=== PATIENT | female | born 1955 | race African-American/Black ===

== ENCOUNTER 2020-11-10 15:32 | Inpatient (IN) | payer MEDICARE, MEDICAID ==
[~2020-11-10] VITALS: Ht 167.6 cm; Wt 95.3 kg
[2020-11-10] MEDS ORDERED: KETOROLAC 60MG/2ML VIAL IM ONE (16:30)
[2020-11-10] MEDS ORDERED: HYDROCODONE/ACETAMINOPHEN 10/325MG TABLET PO ONE (16:30)
[2020-11-10 17:31] LABS: BASOPHILS % 0.9 % (0.0-2.0); HEMATOCRIT. 43.4 % (36.0-48.0); HEMOGLOBIN. 14.6 g/dL (12.0-16.0); LYMPHOCYTES % 42.8 % (20.0-50.0); MEAN CORPUSCULAR HEMOGLOBIN 29.9 pg (28.0-32.0); MEAN CORPUSCULAR VOLUME 89.1 fL (81.0-99.0); MEAN PLATELET VOLUME 6.6 fl (7.4-10.4); MONOCYTES % 8.2 % (2.0-8.0); NEUTROPHILS % 45.1 % (40.0-76.0); PLATELET 397 x1000/uL (130-400); RED BLOOD CELL COUNT 4.87 mill/uL (4.2-5.4); RED CELL DISTRIBUTION WIDTH 13.3 % (11.6-14.6)
[2020-11-10 17:36] LABS: CHLORIDE 101 mEq/L (98-107)
[2020-11-10 17:39] LABS: PROTHROMBIN TIME 10.8 sec (9.6-11.0)
[2020-11-10] MEDS ORDERED: MORPHINE SULFATE 4 MG/ML CPJ (NOT FOR IM USE) IV ONE ×2 (18:00→20:00)
[2020-11-11 01:22] VITALS: BP 137/76
[2020-11-11] MEDS ORDERED: HYDROCODONE/ACETAMINOPHEN 5/325MG TABLET PO PRN (06:15)
[2020-11-11] MEDS ORDERED: NALOXONE HCL 0.4MG/ML VIAL IV PRN (06:30)
[2020-11-11] MEDS: MORPHINE SULFATE 2 MG/ML CPJ (NOT FOR IM USE) IV PRN ×2 (06:56→12:57)
[2020-11-11 08:00] VITALS: BP 133/82
[2020-11-11 12:00] VITALS: BP 151/84
[2020-11-11] MEDS ORDERED: HYDROCODONE/ACETAMINOPHEN 10/325MG TABLET PO PRN (13:45)
[2020-11-11] MEDS ORDERED: ONDANSETRON HCL 4MG/2ML INJ IV PRN (13:45)
[2020-11-11] MEDS ORDERED: HYDROMORPHONE HCL/PF 2MG/ML CPJ IV NR (14:45)
[2020-11-11 16:00] VITALS: BP 150/83
[2020-11-11 17:16] LABS: BASOPHILS % 0.5 % (0.0-2.0); EOSINOPHILS % 1.9 % (0.0-5.0); HEMOGLOBIN. 14.1 g/dL (12.0-16.0); LYMPHOCYTES % 41.7 % (20.0-50.0); MEAN CORPUSCULAR HEMOGLOBIN 30.5 pg (28.0-32.0); MEAN CORPUSCULAR VOLUME 88.6 fL (81.0-99.0); MEAN PLATELET VOLUME 6.9 fl (7.4-10.4); MONOCYTES % 7.8 % (2.0-8.0); NEUTROPHILS % 48.1 % (40.0-76.0); PLATELET 374 x1000/uL (130-400); RED BLOOD CELL COUNT 4.63 mill/uL (4.2-5.4); RED CELL DISTRIBUTION WIDTH 13.1 % (11.6-14.6)
[2020-11-11 17:29] LABS: CHLORIDE 101 mEq/L (98-107)
[2020-11-11 17:35] LABS: C REACTIVE PROTEIN QUANT 8.3 mg/L (0.0-3.0)
[2020-11-11] MEDS ORDERED: LORAZEPAM 2MG/ML CPJ IV NR (18:00)
[2020-11-11 18:55] LABS: CLARITY URINE CLEAR (CLEAR); COLOR URINE YELLOW (YELLOW); KETONES URINE NEGATIVE (NEGATIVE); LEUKOCYTE ESTERASE URINE NEGATIVE (NEGATIVE); NITRITE URINE NEGATIVE (NEGATIVE); OCCULT BLOOD URINE NEGATIVE (NEGATIVE); PH URINE 6.5 (4.5-8.0); PROTEIN URINE 1+ (NEGATIVE); SPECIFIC GRAVITY URINE 1.015 (1.005-1.030)
[2020-11-11 20:00] VITALS: BP 148/85
[2020-11-11] MEDS: OXYCODONE HCL/ACETAMINOPHEN 5/325MG TABLET PO PRN (20:50)
[2020-11-12] VITALS: BP 158/97
[2020-11-12] MEDS: OXYCODONE HCL/ACETAMINOPHEN 5/325MG TABLET PO PRN ×4 (03:18→22:17)
[2020-11-12 04:00] VITALS: BP 131/95
[2020-11-12] MEDS: HYDROMORPHONE HCL/PF 2MG/ML CPJ IV PRN ×4 (07:33→23:03)
[2020-11-12] MEDS ORDERED: LORAZEPAM 2MG/ML CPJ IV SCH (13:00)
[2020-11-12] MEDS ORDERED: ATEN-42 MT (16:30)
[2020-11-12] MEDS ORDERED: AMLO5TAB88 PO (16:37)
[2020-11-12] MEDS ORDERED: HYDR25TA MT (16:43)
[2020-11-12] MEDS ORDERED: ASCO-339 MT (16:43)
[2020-11-12 20:00] VITALS: BP 149/89
[2020-11-13] VITALS: BP 177/88
[2020-11-13] MEDS: OXYCODONE HCL/ACETAMINOPHEN 5/325MG TABLET PO PRN ×3 (00:40→17:29)
[2020-11-13 04:00] VITALS: BP 158/75
[2020-11-13] MEDS: HYDROMORPHONE HCL/PF 2MG/ML CPJ IV PRN ×3 (06:52→21:47)
[2020-11-13 08:00] VITALS: BP 142/77
[2020-11-13 12:00] VITALS: BP 135/88
[2020-11-13] MEDS: AMLODIPINE 5MG TABLET PO SCH (12:22)
[2020-11-13] MEDS: DEXT 5%/LACTATED RINGERS 1,000 ML IV SCH ×2 (12:22→21:27)
[2020-11-13] MEDS: ATENOLOL 25MG TABLET PO SCH (12:23)
[2020-11-13 16:00] VITALS: BP 130/84
[2020-11-13] MEDS: SODIUM CHLORIDE 45ML SPRAY NS SCH ×2 (17:28→21:27)
[2020-11-13 17:33] LABS: BG BASE EXCESS 5.5 mmol/L (-2.0-2.0); BG CARBOXYHEMOGLOBIN 0.8 % (0.5-1.5); BG DEOXYHEMOGLOBIN 5.3 % (0.0-5.0); BG FRACTION INSPIRED OXYGEN 21; BG HCO3 ACT 29.8 mmol/L (22.0-26.0); BG METHEMOGLOBIN 0.2 % (0.0-1.5); BG OXYGEN SATURATION 94.6 % (92.0-98.5); BG OXYHEMOGLOBIN 93.7 % (94.0-97.0); BG PCO2 42.4 mmHg (35.0-45.0); BG PH 7.465 (7.350-7.450); BG SAMPLE SITE RIGHT RADIAL; BG TOTAL HEMOGLOBIN 13.8 g/dL (12.0-18.0); BG VENT MODE ROOM AIR
[2020-11-13 20:00] VITALS: BP 136/83
[2020-11-14] VITALS: BP 125/71
[2020-11-14] MEDS: OXYCODONE HCL/ACETAMINOPHEN 5/325MG TABLET PO PRN ×3 (00:53→18:53)
[2020-11-14] MEDS: SODIUM CHLORIDE 45ML SPRAY NS SCH ×6 (02:00→22:16)
[2020-11-14 04:00] VITALS: BP 135/70
[2020-11-14] MEDS: HYDROMORPHONE HCL/PF 2MG/ML CPJ IV PRN (06:04)
[2020-11-14 08:00] VITALS: BP_SYST 149; BP_SYST 151; BP_DIAS 75; BP_DIAS 80
[2020-11-14] MEDS: DEXT 5%/LACTATED RINGERS 1,000 ML IV SCH ×2 (08:00→17:11)
[2020-11-14] MEDS: AMLODIPINE 5MG TABLET PO SCH ×2 (09:12→17:11)
[2020-11-14] MEDS: ATENOLOL 25MG TABLET PO SCH (09:12)
[2020-11-14] MEDS ORDERED: HYDROMORPHONE HCL/PF 2MG/ML CPJ IV PRN (11:15)
[2020-11-14 12:00] VITALS: BP 151/75
[2020-11-14 16:00] VITALS: BP 141/68
[2020-11-14 20:00] VITALS: BP 139/74
[2020-11-15] VITALS: BP 132/75
[2020-11-15] MEDS: SODIUM CHLORIDE 45ML SPRAY NS SCH ×6 (02:00→21:23)
[2020-11-15 04:00] VITALS: BP 162/86
[2020-11-15] MEDS: OXYCODONE HCL/ACETAMINOPHEN 5/325MG TABLET PO PRN ×3 (05:09→21:23)
[2020-11-15] MEDS: DEXT 5%/LACTATED RINGERS 1,000 ML IV SCH ×2 (05:10→13:06)
[2020-11-15 07:07] LABS: BASOPHILS % 0.9 % (0.0-2.0); EOSINOPHILS % 3.2 % (0.0-5.0); HEMATOCRIT. 39.4 % (36.0-48.0); HEMOGLOBIN. 13.3 g/dL (12.0-16.0); LYMPHOCYTES % 37.6 % (20.0-50.0); MEAN CORPUSCULAR HEMOGLOBIN 30.3 pg (28.0-32.0); MEAN CORPUSCULAR VOLUME 89.8 fL (81.0-99.0); MONOCYTES % 8.8 % (2.0-8.0); NEUTROPHILS % 49.5 % (40.0-76.0); PLATELET 354 x1000/uL (130-400); RED BLOOD CELL COUNT 4.38 mill/uL (4.2-5.4); RED CELL DISTRIBUTION WIDTH 13.2 % (11.6-14.6)
[2020-11-15 07:37] LABS: CHLORIDE 105 mEq/L (98-107)
[2020-11-15 08:00] VITALS: BP 156/90
[2020-11-15] MEDS: AMLODIPINE 5MG TABLET PO SCH ×2 (09:21→18:50)
[2020-11-15] MEDS: ATENOLOL 25MG TABLET PO SCH (09:22)
[2020-11-15] MEDS ORDERED: POTASSIUM CHLORIDE 20MEQ/PACKET PO SCH (09:30)
[2020-11-15] MEDS ORDERED: GENTAMICIN/NS IRRIGATION 500 ML IR ONE (10:24)
[2020-11-15 12:00] VITALS: BP 158/86
[2020-11-15 16:00] VITALS: BP 149/80
[2020-11-15 20:00] VITALS: BP 142/87
[2020-11-16] VITALS: BP 142/75
[2020-11-16] MEDS: SODIUM CHLORIDE 45ML SPRAY NS SCH ×6 (02:00→22:00)
[2020-11-16] MEDS: OXYCODONE HCL/ACETAMINOPHEN 5/325MG TABLET PO PRN ×5 (03:31→22:48)
[2020-11-16 04:00] VITALS: BP 162/81
[2020-11-16 08:00] VITALS: BP 135/74
[2020-11-16 08:16] LABS: CHLORIDE 104 mEq/L (98-107)
[2020-11-16 08:18] LABS: BASOPHILS % 0.9 % (0.0-2.0); EOSINOPHILS % 1.5 % (0.0-5.0); HEMATOCRIT. 40.3 % (36.0-48.0); HEMOGLOBIN. 13.7 g/dL (12.0-16.0); LYMPHOCYTES % 35.8 % (20.0-50.0); MEAN CORPUSCULAR HEMOGLOBIN 29.9 pg (28.0-32.0); MEAN CORPUSCULAR VOLUME 88.3 fL (81.0-99.0); MEAN PLATELET VOLUME 7.2 fl (7.4-10.4); MONOCYTES % 8.1 % (2.0-8.0); NEUTROPHILS % 53.7 % (40.0-76.0); PLATELET 360 x1000/uL (130-400); RED BLOOD CELL COUNT 4.56 mill/uL (4.2-5.4)
[2020-11-16] MEDS: ATENOLOL 25MG TABLET PO SCH (09:21)
[2020-11-16] MEDS: AMLODIPINE 5MG TABLET PO SCH ×2 (09:21→17:24)
[2020-11-16] MEDS: DEXT 5%/LACTATED RINGERS 1,000 ML IV SCH ×2 (09:26)
[2020-11-16 12:00] VITALS: BP 141/78
[2020-11-16 16:00] VITALS: BP 136/71
[2020-11-16 20:00] VITALS: BP 150/76
[2020-11-17 00:22] VITALS: BP 112/56
[2020-11-17] MEDS: SODIUM CHLORIDE 45ML SPRAY NS SCH ×6 (02:00→21:01)
[2020-11-17] MEDS: OXYCODONE HCL/ACETAMINOPHEN 5/325MG TABLET PO PRN ×3 (03:43→16:01)
[2020-11-17 04:29] VITALS: BP 120/61
[2020-11-17 06:18] LABS: BASOPHILS % 0.7 % (0.0-2.0); EOSINOPHILS % 1.8 % (0.0-5.0); HEMATOCRIT. 39.7 % (36.0-48.0); HEMOGLOBIN. 13.5 g/dL (12.0-16.0); LYMPHOCYTES % 36.5 % (20.0-50.0); MEAN CORPUSCULAR HEMOGLOBIN 29.9 pg (28.0-32.0); MEAN PLATELET VOLUME 7.3 fl (7.4-10.4); MONOCYTES % 8.9 % (2.0-8.0); NEUTROPHILS % 52.1 % (40.0-76.0); PLATELET 363 x1000/uL (130-400); RED BLOOD CELL COUNT 4.51 mill/uL (4.2-5.4)
[2020-11-17 06:36] LABS: CHLORIDE 104 mEq/L (98-107)
[2020-11-17 08:00] VITALS: BP 139/85
[2020-11-17] MEDS: ATENOLOL 25MG TABLET PO SCH (09:09)
[2020-11-17] MEDS: AMLODIPINE 5MG TABLET PO SCH ×2 (09:09→16:02)
[2020-11-17 12:00] VITALS: BP 136/73
[2020-11-17 16:00] VITALS: BP 133/76
[2020-11-17] MEDS: DEXT 5%/LACTATED RINGERS 1,000 ML IV SCH (16:00)
[2020-11-17] MEDS ORDERED: ENOXAPARIN 40MG/0.4ML SYR SUBCUT SCH (17:00)
[2020-11-17] MEDS: LACTULOSE 20G/30ML UDC PO SCH ×2 (17:00→20:32)
[2020-11-17] MEDS: ENOXAPARIN 30MG/0.3ML SYR SUBCUT SCH (17:30)
[2020-11-17] MEDS: DOCUSATE SODIUM 100MG CAPSULE PO SCH (17:30)
[2020-11-17 20:00] VITALS: BP 112/97
[2020-11-18] VITALS: BP 113/62
[2020-11-18] MEDS: LACTULOSE 20G/30ML UDC PO SCH (00:36)
[2020-11-18] MEDS: OXYCODONE HCL/ACETAMINOPHEN 5/325MG TABLET PO PRN ×3 (00:39→16:08)
[2020-11-18] MEDS: SODIUM CHLORIDE 45ML SPRAY NS SCH ×2 (01:37→05:25)
[2020-11-18] MEDS: DEXT 5%/LACTATED RINGERS 1,000 ML IV SCH (01:37)
[2020-11-18 04:00] VITALS: BP 112/66
[2020-11-18] MEDS: ENOXAPARIN 30MG/0.3ML SYR SUBCUT SCH ×2 (05:25→17:45)
[2020-11-18] MEDS: IPRATROPIUM/ALBUTEROL 0.5-3(2.5)MG/3ML NEB HHN SCH ×2 (07:52→22:10)
[2020-11-18 08:00] VITALS: BP 146/99
[2020-11-18] MEDS ORDERED: POLYETHYLENE GLYCOL 3350 (17GM) 1 DOSE PACK PO SCH (09:00)
[2020-11-18] MEDS ORDERED: ATENOLOL 50 MG TABLET PO SCH (09:00)
[2020-11-18] MEDS ORDERED: METHOCARBAMOL 500MG TABLET PO PRN (09:30)
[2020-11-18] MEDS ORDERED: NALOXONE HCL 0.4MG/ML VIAL IV PRN (09:30)
[2020-11-18] MEDS: DOCUSATE SODIUM 100MG CAPSULE PO SCH ×2 (09:41→17:43)
[2020-11-18] MEDS: AMLODIPINE 5MG TABLET PO SCH ×2 (09:42→17:44)
[2020-11-18 12:00] VITALS: BP 136/76
[2020-11-18 16:00] VITALS: BP 124/74
[2020-11-18] MEDS: GABAPENTIN 300MG CAPSULE PO SCH ×2 (16:07→21:33)
[2020-11-18 20:00] VITALS: BP 114/63
== END 2020-11-18 22:00 | DRG 551 ==
LOC: ER 15:32 → ENRESERV 23:19 → 6EST 11-11 00:54
PROVIDERS: ADMIT Internal Medicine; ATTEND Internal Medicine
DX: M48.061 Spinal stenosis, lumbar region without neurogenic claudication (principal); S34.109A Unspecified injury to unspecified level of lumbar spinal cord, initial encounter; G82.20 Paraplegia, unspecified; J98.11 Atelectasis; M32.9 Systemic lupus erythematosus, unspecified; M47.26 Other spondylosis with radiculopathy, lumbar region; M51.16 Intervertebral disc disorders with radiculopathy, lumbar region; M48.07 Spinal stenosis, lumbosacral region; M48.04 Spinal stenosis, thoracic region; M19.90 Unspecified osteoarthritis, unspecified site; G89.29 Other chronic pain; F12.90 Cannabis use, unspecified, uncomplicated; J31.0 Chronic rhinitis; Z20.822 Contact with and (suspected) exposure to COVID-19; I10 Essential (primary) hypertension; J45.909 Unspecified asthma, uncomplicated; M06.9 Rheumatoid arthritis, unspecified; M48.02 Spinal stenosis, cervical region; E66.01 Morbid (severe) obesity due to excess calories; M51.24 Other intervertebral disc displacement, thoracic region; E07.9 Disorder of thyroid, unspecified; G47.30 Sleep apnea, unspecified; X58.XXXA Exposure to other specified factors, initial encounter; Z68.33 Body mass index [BMI] 33.0-33.9, adult; Z82.49 Family history of ischemic heart disease and other diseases of the circulatory system; Y93.89 Activity, other specified; Y92.89 Other specified places as the place of occurrence of the external cause; Y99.8 Other external cause status; R53.81 Other malaise; R26.9 Unspecified abnormalities of gait and mobility; K76.0 Fatty (change of) liver, not elsewhere classified; Z71.3 Dietary counseling and surveillance
CPT/HCPCS: 36415; 36600; 71045; 72141; 72146; 72148; 74176; 78306; 80048; 80053; 81003; 82375; 82378; 82805; 84145; 85025; 85651; 86140; 86300; 86301; 86304; 86850; 86900; 87426; 93005; 93306; 94640; 97110; 97162; 97166; 97530; 99285; A9503; J1170; J1650; J1885; J2060; J2270; J7121

== ENCOUNTER 2020-11-18 22:06 | Inpatient (IN) | payer MEDICARE, MEDICAID ==
[~2020-11-18] VITALS: Ht 167.6 cm; Wt 95.3 kg
[~2020-11-18 22:06] MED LIST: AMLO5TAB88 PO; ASCO-339 MT; ATEN-42 MT; HYDR25TA MT
[2020-11-18 22:20] VITALS: BP 136/77
[2020-11-18 22:30] VITALS: BP 136/77
[2020-11-18] MEDS ORDERED: OXYCODONE HCL/ACETAMINOPHEN 5/325MG TABLET PO PRN (22:45)
[2020-11-18] MEDS ORDERED: NALOXONE HCL 0.4 MG/ML 1ML VIAL IV PRN (22:45)
[2020-11-18] MEDS ORDERED: ONDANSETRON HCL 4MG/2ML INJ IV PRN (22:45)
[2020-11-18] MEDS ORDERED: NALOXONE HCL 0.4MG/ML VIAL IV PRN (23:00)
[2020-11-18] MEDS: OXYCODONE HCL/ACETAMINOPHEN 5/325MG TABLET PO PRN (23:02)
[2020-11-19] MEDS ORDERED: IPRATROPIUM/ALBUTEROL 0.5-3(2.5)MG/3ML NEB HHN SCH
[2020-11-19] MEDS: GABAPENTIN 300MG CAPSULE PO SCH ×3 (05:50→21:00)
[2020-11-19] MEDS: OXYCODONE HCL/ACETAMINOPHEN 5/325MG TABLET PO PRN ×2 (05:51→18:58)
[2020-11-19] MEDS: ENOXAPARIN 30MG/0.3ML SYR SUBCUT SCH ×2 (05:51→17:42)
[2020-11-19 07:13] LABS: BASOPHILS % 0.9 % (0.0-2.0); EOSINOPHILS % 2.4 % (0.0-5.0); HEMATOCRIT. 42.7 % (36.0-48.0); HEMOGLOBIN. 14.1 g/dL (12.0-16.0); LYMPHOCYTES % 44.4 % (20.0-50.0); MEAN CORPUSCULAR HEMOGLOBIN 29.4 pg (28.0-32.0); MEAN CORPUSCULAR VOLUME 89.2 fL (81.0-99.0); MONOCYTES % 8.8 % (2.0-8.0); NEUTROPHILS % 43.5 % (40.0-76.0); PLATELET 399 x1000/uL (130-400); RED BLOOD CELL COUNT 4.78 mill/uL (4.2-5.4); RED CELL DISTRIBUTION WIDTH 12.9 % (11.6-14.6)
[2020-11-19 07:20] LABS: CHLORIDE 105 mEq/L (98-107)
[2020-11-19 07:55] VITALS: BP 125/79
[2020-11-19] MEDS: SODIUM CHLORIDE 45ML SPRAY NS SCH ×4 (09:00→20:48)
[2020-11-19] MEDS: DOCUSATE SODIUM 100MG CAPSULE PO SCH ×2 (09:32→17:41)
[2020-11-19] MEDS: ATENOLOL 50 MG TABLET PO SCH (09:33)
[2020-11-19] MEDS: AMLODIPINE 5MG TABLET PO SCH ×2 (09:33→20:47)
[2020-11-19] MEDS: POLYETHYLENE GLYCOL 3350 (17GM) 1 DOSE PACK PO SCH (09:38)
[2020-11-19] MEDS: METHOCARBAMOL 500MG TABLET PO PRN ×2 (10:26→23:37)
[2020-11-19] MEDS ORDERED: IPRATROPIUM/ALBUTEROL 0.5-3(2.5)MG/3ML NEB HHN PRN (11:30)
[2020-11-19] MEDS: LACTULOSE 20G/30ML UDC PO SCH ×3 (13:25→20:45)
[2020-11-19 20:00] VITALS: BP 133/67
[2020-11-19] MEDS: LIDOCAINE 5% PATCH TOP SCH (20:49)
[2020-11-20] MEDS: METHYL SALICYLATE/MENTHOL CREAM 85GM TOP PRN (00:08)
[2020-11-20] MEDS: OXYCODONE HCL/ACETAMINOPHEN 5/325MG TABLET PO PRN (03:31)
[2020-11-20] MEDS: GABAPENTIN 300MG CAPSULE PO SCH ×3 (05:43→20:56)
[2020-11-20] MEDS: ENOXAPARIN 30MG/0.3ML SYR SUBCUT SCH ×2 (05:43→18:02)
[2020-11-20 06:44] LABS: BASOPHILS % 0.9 % (0.0-2.0); HEMATOCRIT. 41.4 % (36.0-48.0); HEMOGLOBIN. 14.2 g/dL (12.0-16.0); LYMPHOCYTES % 42.9 % (20.0-50.0); MEAN CORPUSCULAR HEMOGLOBIN 30.3 pg (28.0-32.0); MEAN CORPUSCULAR VOLUME 88.3 fL (81.0-99.0); MONOCYTES % 7.3 % (2.0-8.0); NEUTROPHILS % 45.9 % (40.0-76.0); PLATELET 377 x1000/uL (130-400); RED BLOOD CELL COUNT 4.69 mill/uL (4.2-5.4); RED CELL DISTRIBUTION WIDTH 13.2 % (11.6-14.6)
[2020-11-20 06:48] LABS: CHLORIDE 103 mEq/L (98-107)
[2020-11-20 06:59] LABS: TOTAL IRON BINDING CAPACITY 269 ug/dL (250-450)
[2020-11-20 07:09] LABS: FERRITIN 134 ng/mL (10-291)
[2020-11-20 07:22] LABS: VITAMIN B12 SERUM 1897 pg/mL (211-911)
[2020-11-20 07:33] LABS: FOLIC ACID (FOLATE) SERUM > 20.00 ng/mL (>5.38)
[2020-11-20 08:00] VITALS: BP 125/74
[2020-11-20] MEDS: SODIUM CHLORIDE 45ML SPRAY NS SCH ×4 (09:00→20:58)
[2020-11-20] MEDS: DOCUSATE SODIUM 100MG CAPSULE PO SCH ×2 (09:19→17:30)
[2020-11-20] MEDS: METHOCARBAMOL 500MG TABLET PO PRN ×2 (09:19→20:21)
[2020-11-20] MEDS: ATENOLOL 50 MG TABLET PO SCH (09:20)
[2020-11-20] MEDS: AMLODIPINE 5MG TABLET PO SCH ×2 (09:20→20:57)
[2020-11-20] MEDS: POLYETHYLENE GLYCOL 3350 (17GM) 1 DOSE PACK PO SCH (09:20)
[2020-11-20] MEDS: LIDOCAINE 5% PATCH TOP SCH ×2 (09:20→18:01)
[2020-11-20] MEDS: OXYCODONE HCL 5MG TABLET PO PRN ×2 (13:03→17:31)
[2020-11-20] MEDS ORDERED: NA PHOS,M-B/NA PHOS,DI-BA ENEMA 118ML PR PRN (15:00)
[2020-11-20] MEDS: LACTULOSE 20G/30ML UDC PO SCH ×2 (18:01→21:06)
[2020-11-20 20:00] VITALS: BP 131/74
[2020-11-20] MEDS: HYDROCODONE/ACETAMINOPHEN 10/325MG TABLET PO PRN (20:54)
[2020-11-21] MEDS: GABAPENTIN 300MG CAPSULE PO SCH ×3 (05:09→21:38)
[2020-11-21] MEDS: ENOXAPARIN 30MG/0.3ML SYR SUBCUT SCH ×2 (05:09→17:50)
[2020-11-21] MEDS: HYDROCODONE/ACETAMINOPHEN 10/325MG TABLET PO PRN (05:15)
[2020-11-21 08:32] VITALS: BP 140/74
[2020-11-21] MEDS: DOCUSATE SODIUM 100MG CAPSULE PO SCH (08:58)
[2020-11-21] MEDS: ATENOLOL 50 MG TABLET PO SCH (08:59)
[2020-11-21] MEDS: OXYCODONE HCL 5MG TABLET PO PRN ×4 (08:59→20:45)
[2020-11-21] MEDS: POLYETHYLENE GLYCOL 3350 (17GM) 1 DOSE PACK PO SCH (09:00)
[2020-11-21] MEDS: LACTULOSE 20G/30ML UDC PO SCH (09:00)
[2020-11-21] MEDS: LIDOCAINE 5% PATCH TOP SCH (09:01)
[2020-11-21] MEDS: SODIUM CHLORIDE 45ML SPRAY NS SCH ×4 (10:15→20:45)
[2020-11-21] MEDS: AMLODIPINE 5MG TABLET PO SCH ×2 (10:16→20:44)
[2020-11-21 19:48] LABS: CLARITY URINE CLEAR (CLEAR); COLOR URINE DARK YELLOW (YELLOW); KETONES URINE NEGATIVE (NEGATIVE); LEUKOCYTE ESTERASE URINE NEGATIVE (NEGATIVE); NITRITE URINE NEGATIVE (NEGATIVE); OCCULT BLOOD URINE TRACE (NEGATIVE); PROTEIN URINE 2+ (NEGATIVE)
[2020-11-21 20:00] VITALS: BP 132/88
[2020-11-22] MEDS: OXYCODONE HCL 5MG TABLET PO PRN ×4 (02:44→18:23)
[2020-11-22] MEDS: METHOCARBAMOL 500MG TABLET PO PRN (03:45)
[2020-11-22] MEDS: GABAPENTIN 300MG CAPSULE PO SCH ×3 (05:36→21:29)
[2020-11-22] MEDS: ENOXAPARIN 30MG/0.3ML SYR SUBCUT SCH ×2 (05:37→13:31)
[2020-11-22] MEDS: HYDROCODONE/ACETAMINOPHEN 10/325MG TABLET PO PRN ×2 (07:01→22:29)
[2020-11-22 08:21] VITALS: BP 133/75
[2020-11-22] MEDS: AMLODIPINE 5MG TABLET PO SCH ×2 (10:05→21:30)
[2020-11-22] MEDS: ATENOLOL 50 MG TABLET PO SCH (10:07)
[2020-11-22] MEDS: LIDOCAINE 5% PATCH TOP SCH (10:07)
[2020-11-22] MEDS: SODIUM CHLORIDE 45ML SPRAY NS SCH ×4 (10:08→21:33)
[2020-11-22 20:00] VITALS: BP 126/74
[2020-11-23] MEDS: OXYCODONE HCL 5MG TABLET PO PRN ×3 (00:08→22:07)
[2020-11-23] MEDS: ENOXAPARIN 30MG/0.3ML SYR SUBCUT SCH ×2 (06:18→18:54)
[2020-11-23] MEDS: GABAPENTIN 300MG CAPSULE PO SCH ×3 (06:18→22:06)
[2020-11-23 08:17] VITALS: BP 117/60
[2020-11-23] MEDS: SODIUM CHLORIDE 45ML SPRAY NS SCH ×4 (08:49→21:00)
[2020-11-23] MEDS: LIDOCAINE 5% PATCH TOP SCH (08:50)
[2020-11-23] MEDS: ATENOLOL 50 MG TABLET PO SCH (08:51)
[2020-11-23] MEDS: AMLODIPINE 5MG TABLET PO SCH ×2 (08:52→21:00)
[2020-11-23] MEDS ORDERED: POLYETHYLENE GLYCOL 3350 (17GM) 1 DOSE PACK PO SCH (09:00)
[2020-11-23] MEDS: HYDROCODONE/ACETAMINOPHEN 10/325MG TABLET PO PRN (16:33)
[2020-11-23] MEDS: METHOCARBAMOL 500MG TABLET PO PRN (19:17)
[2020-11-23 20:00] VITALS: BP 129/74
[2020-11-24] MEDS: METHYL SALICYLATE/MENTHOL CREAM 85GM TOP PRN ×2 (01:19→12:27)
[2020-11-24] MEDS: OXYCODONE HCL 5MG TABLET PO PRN ×4 (01:58→21:09)
[2020-11-24] MEDS: GABAPENTIN 300MG CAPSULE PO SCH ×3 (06:43→21:53)
[2020-11-24] MEDS: ENOXAPARIN 30MG/0.3ML SYR SUBCUT SCH ×2 (06:44→18:01)
[2020-11-24 08:00] VITALS: BP 137/82
[2020-11-24] MEDS: ATENOLOL 50 MG TABLET PO SCH (09:26)
[2020-11-24] MEDS: SODIUM CHLORIDE 45ML SPRAY NS SCH ×4 (09:26→20:20)
[2020-11-24] MEDS: LIDOCAINE 5% PATCH TOP SCH (09:27)
[2020-11-24] MEDS: AMLODIPINE 5MG TABLET PO SCH ×2 (10:03→20:20)
[2020-11-24] MEDS ORDERED: LACTULOSE 20G/30ML UDC PO SCH (17:30)
[2020-11-24 20:00] VITALS: BP 146/79
[2020-11-24] MEDS: MORPHINE SULFATE 15MG TABLET SR PO SCH (20:21)
[2020-11-25] MEDS: OXYCODONE HCL 5MG TABLET PO PRN ×4 (02:03→15:35)
[2020-11-25] MEDS: METHOCARBAMOL 500MG TABLET PO PRN (04:31)
[2020-11-25] MEDS: METHYL SALICYLATE/MENTHOL CREAM 85GM TOP PRN ×2 (04:32→13:24)
[2020-11-25] MEDS: GABAPENTIN 300MG CAPSULE PO SCH ×3 (06:03→21:02)
[2020-11-25] MEDS: ENOXAPARIN 30MG/0.3ML SYR SUBCUT SCH ×2 (06:03→17:01)
[2020-11-25 07:54] VITALS: BP 142/89
[2020-11-25] MEDS: AMLODIPINE 5MG TABLET PO SCH ×2 (08:48→20:38)
[2020-11-25] MEDS: ATENOLOL 50 MG TABLET PO SCH (08:48)
[2020-11-25] MEDS: MORPHINE SULFATE 15MG TABLET SR PO SCH ×2 (08:48→20:38)
[2020-11-25] MEDS: LIDOCAINE 5% PATCH TOP SCH (08:52)
[2020-11-25] MEDS: SODIUM CHLORIDE 45ML SPRAY NS SCH ×5 (08:54→20:37)
[2020-11-25] MEDS: HYDROCODONE/ACETAMINOPHEN 10/325MG TABLET PO PRN ×2 (17:13→17:17)
[2020-11-25 17:16] VITALS: BP 110/65
[2020-11-25 20:00] VITALS: BP 116/66
[2020-11-26] MEDS: OXYCODONE HCL 5MG TABLET PO PRN ×3 (00:20→21:57)
[2020-11-26] MEDS: METHOCARBAMOL 500MG TABLET PO PRN (03:11)
[2020-11-26] MEDS: ENOXAPARIN 30MG/0.3ML SYR SUBCUT SCH ×2 (05:50→17:14)
[2020-11-26] MEDS: GABAPENTIN 300MG CAPSULE PO SCH ×3 (05:50→21:59)
[2020-11-26 07:06] LABS: CHLORIDE 104 mEq/L (98-107)
[2020-11-26 07:20] LABS: BASOPHILS % 0.5 % (0.0-2.0); EOSINOPHILS % 2.9 % (0.0-5.0); HEMATOCRIT. 37.8 % (36.0-48.0); HEMOGLOBIN. 12.5 g/dL (12.0-16.0); LYMPHOCYTES % 49.7 % (20.0-50.0); MEAN CORPUSCULAR HEMOGLOBIN 29.3 pg (28.0-32.0); MEAN CORPUSCULAR VOLUME 88.8 fL (81.0-99.0); MONOCYTES % 8.4 % (2.0-8.0); NEUTROPHILS % 38.5 % (40.0-76.0); PLATELET 341 x1000/uL (130-400); RED BLOOD CELL COUNT 4.26 mill/uL (4.2-5.4); RED CELL DISTRIBUTION WIDTH 13.1 % (11.6-14.6)
[2020-11-26 08:20] VITALS: BP 113/74
[2020-11-26] MEDS: ATENOLOL 50 MG TABLET PO SCH (09:00)
[2020-11-26] MEDS: SODIUM CHLORIDE 45ML SPRAY NS SCH ×4 (09:00→20:00)
[2020-11-26] MEDS: LIDOCAINE 5% PATCH TOP SCH (10:36)
[2020-11-26] MEDS: MORPHINE SULFATE 15MG TABLET SR PO SCH ×2 (10:37→20:00)
[2020-11-26] MEDS: AMLODIPINE 5MG TABLET PO SCH ×2 (10:41→20:01)
[2020-11-26 15:09] LABS: 25-HYDROXY VITAMIN D3 18 ng/mL (.)
[2020-11-26 20:00] VITALS: BP 133/77
[2020-11-27] MEDS: OXYCODONE HCL 5MG TABLET PO PRN ×3 (02:52→17:07)
[2020-11-27] MEDS: METHOCARBAMOL 500MG TABLET PO PRN (04:19)
[2020-11-27] MEDS: METHYL SALICYLATE/MENTHOL CREAM 85GM TOP PRN (04:19)
[2020-11-27] MEDS: GABAPENTIN 300MG CAPSULE PO SCH ×3 (05:38→20:56)
[2020-11-27] MEDS: ENOXAPARIN 30MG/0.3ML SYR SUBCUT SCH ×2 (05:38→17:05)
[2020-11-27 08:00] VITALS: BP 135/77
[2020-11-27] MEDS: SODIUM CHLORIDE 45ML SPRAY NS SCH ×2 (09:00→13:00)
[2020-11-27] MEDS: ATENOLOL 50 MG TABLET PO SCH (09:34)
[2020-11-27] MEDS: MORPHINE SULFATE 15MG TABLET SR PO SCH ×2 (09:34→21:00)
[2020-11-27] MEDS: AMLODIPINE 5MG TABLET PO SCH ×2 (09:34→20:55)
[2020-11-27] MEDS: LIDOCAINE 5% PATCH TOP SCH (09:35)
[2020-11-27] MEDS ORDERED: ERGOCALCIFEROL 50000UNITS CAPSULE PO SCH (10:30)
[2020-11-27] MEDS: DOCUSATE SODIUM 100MG CAPSULE PO SCH (17:00)
[2020-11-27] MEDS ORDERED: SODIUM CHLORIDE 45ML SPRAY NS PRN (17:00)
[2020-11-27 20:00] VITALS: BP 118/71
[2020-11-28] MEDS: OXYCODONE HCL 5MG TABLET PO PRN ×3 (02:14→23:01)
[2020-11-28] MEDS: GABAPENTIN 300MG CAPSULE PO SCH ×3 (05:16→20:23)
[2020-11-28] MEDS: ENOXAPARIN 30MG/0.3ML SYR SUBCUT SCH ×2 (05:17→17:15)
[2020-11-28] MEDS: HYDROCODONE/ACETAMINOPHEN 10/325MG TABLET PO PRN (05:17)
[2020-11-28 07:47] VITALS: BP 117/65
[2020-11-28] MEDS: POLYETHYLENE GLYCOL 3350 (17GM) 1 DOSE PACK PO SCH (09:40)
[2020-11-28] MEDS: MORPHINE SULFATE 15MG TABLET SR PO SCH ×2 (09:41→20:23)
[2020-11-28] MEDS: LIDOCAINE 5% PATCH TOP SCH (09:41)
[2020-11-28] MEDS: DOCUSATE SODIUM 100MG CAPSULE PO SCH ×2 (09:42→16:42)
[2020-11-28] MEDS: ATENOLOL 50 MG TABLET PO SCH (09:42)
[2020-11-28] MEDS: AMLODIPINE 5MG TABLET PO SCH ×2 (10:06→20:24)
[2020-11-28 20:00] VITALS: BP 126/64
[2020-11-29] MEDS: HYDROCODONE/ACETAMINOPHEN 10/325MG TABLET PO PRN (03:20)
[2020-11-29] MEDS: METHOCARBAMOL 500MG TABLET PO PRN (03:23)
[2020-11-29] MEDS: GABAPENTIN 300MG CAPSULE PO SCH ×3 (05:37→21:01)
[2020-11-29] MEDS: OXYCODONE HCL 5MG TABLET PO PRN ×3 (05:40→19:06)
[2020-11-29] MEDS: ENOXAPARIN 30MG/0.3ML SYR SUBCUT SCH ×2 (06:26→17:22)
[2020-11-29 08:06] VITALS: BP 141/72
[2020-11-29] MEDS: ATENOLOL 50 MG TABLET PO SCH (08:06)
[2020-11-29] MEDS: AMLODIPINE 5MG TABLET PO SCH ×2 (08:07→20:57)
[2020-11-29] MEDS: MORPHINE SULFATE 15MG TABLET SR PO SCH ×2 (08:07→20:57)
[2020-11-29] MEDS: DOCUSATE SODIUM 100MG CAPSULE PO SCH ×2 (08:14→17:21)
[2020-11-29] MEDS: LIDOCAINE 5% PATCH TOP SCH (08:14)
[2020-11-29] MEDS: POLYETHYLENE GLYCOL 3350 (17GM) 1 DOSE PACK PO SCH (09:00)
[2020-11-29 20:00] VITALS: BP 113/64
[2020-11-30] MEDS: METHOCARBAMOL 500MG TABLET PO PRN ×2 (01:41→13:21)
[2020-11-30] MEDS: HYDROCODONE/ACETAMINOPHEN 10/325MG TABLET PO PRN (03:18)
[2020-11-30] MEDS: OXYCODONE HCL 5MG TABLET PO PRN ×3 (04:57→22:38)
[2020-11-30] MEDS: GABAPENTIN 300MG CAPSULE PO SCH ×3 (05:01→21:01)
[2020-11-30] MEDS: ENOXAPARIN 30MG/0.3ML SYR SUBCUT SCH ×2 (05:03→18:00)
[2020-11-30 08:01] VITALS: BP 133/52
[2020-11-30] MEDS: DOCUSATE SODIUM 100MG CAPSULE PO SCH ×2 (08:05→16:37)
[2020-11-30] MEDS: MORPHINE SULFATE 15MG TABLET SR PO SCH ×2 (08:05→21:02)
[2020-11-30] MEDS: ATENOLOL 50 MG TABLET PO SCH (08:06)
[2020-11-30] MEDS: LIDOCAINE 5% PATCH TOP SCH (08:06)
[2020-11-30] MEDS: AMLODIPINE 5MG TABLET PO SCH ×2 (08:06→21:03)
[2020-11-30] MEDS: POLYETHYLENE GLYCOL 3350 (17GM) 1 DOSE PACK PO SCH (08:15)
[2020-11-30] MEDS: METHYL SALICYLATE/MENTHOL CREAM 85GM TOP PRN (13:22)
[2020-11-30] MEDS: SODIUM CHLORIDE 45ML SPRAY NS PRN (18:32)
[2020-11-30 20:00] VITALS: BP 142/68
[2020-12-01] MEDS: HYDROCODONE/ACETAMINOPHEN 10/325MG TABLET PO PRN ×3 (00:55→16:54)
[2020-12-01] MEDS: OXYCODONE HCL 5MG TABLET PO PRN ×2 (03:59→12:22)
[2020-12-01] MEDS: GABAPENTIN 300MG CAPSULE PO SCH ×3 (06:06→20:59)
[2020-12-01] MEDS: ENOXAPARIN 30MG/0.3ML SYR SUBCUT SCH ×2 (06:08→17:02)
[2020-12-01 07:52] VITALS: BP 117/58
[2020-12-01] MEDS: DOCUSATE SODIUM 100MG CAPSULE PO SCH ×2 (08:26→16:54)
[2020-12-01] MEDS: MORPHINE SULFATE 15MG TABLET SR PO SCH ×2 (08:26→20:59)
[2020-12-01] MEDS: AMLODIPINE 5MG TABLET PO SCH ×2 (08:27→20:57)
[2020-12-01] MEDS: POLYETHYLENE GLYCOL 3350 (17GM) 1 DOSE PACK PO SCH (08:27)
[2020-12-01] MEDS: ATENOLOL 50 MG TABLET PO SCH (08:27)
[2020-12-01] MEDS: LIDOCAINE 5% PATCH TOP SCH (08:28)
[2020-12-01] MEDS ORDERED: NALOXONE HCL 0.4MG/ML VIAL IV PRN (12:30)
[2020-12-01 20:00] VITALS: BP 132/64
[2020-12-02] MEDS: HYDROCODONE/ACETAMINOPHEN 10/325MG TABLET PO PRN (02:06)
[2020-12-02] MEDS: SODIUM CHLORIDE 45ML SPRAY NS PRN (03:27)
[2020-12-02] MEDS: GABAPENTIN 300MG CAPSULE PO SCH ×2 (06:30→13:48)
[2020-12-02] MEDS: ENOXAPARIN 30MG/0.3ML SYR SUBCUT SCH (06:30)
[2020-12-02 08:00] VITALS: BP 111/64
[2020-12-02] MEDS ORDERED: POLY17PO3 PO (08:27)
[2020-12-02] MEDS ORDERED: LIDO700A30 TOP (08:27)
[2020-12-02] MEDS ORDERED: CHOL-9 PO (08:27)
[2020-12-02] MEDS ORDERED: ATEN50TA PO (08:27)
[2020-12-02] MEDS ORDERED: AMLO5TAB88 PO (08:27)
[2020-12-02] MEDS ORDERED: GABA-532 PO (08:27)
[2020-12-02] MEDS ORDERED: MSCON15 PO (08:27)
[2020-12-02] MEDS: POLYETHYLENE GLYCOL 3350 (17GM) 1 DOSE PACK PO SCH (08:48)
[2020-12-02] MEDS: DOCUSATE SODIUM 100MG CAPSULE PO SCH ×2 (08:49→17:00)
[2020-12-02] MEDS: AMLODIPINE 5MG TABLET PO SCH (08:50)
[2020-12-02] MEDS: MORPHINE SULFATE 15MG TABLET SR PO SCH (08:50)
[2020-12-02] MEDS: ATENOLOL 50 MG TABLET PO SCH (08:50)
[2020-12-02] MEDS: LIDOCAINE 5% PATCH TOP SCH (08:51)
[2020-12-02] MEDS ORDERED: NALO4SPR BOTHNSTRLS (09:48)
[2020-12-02] MEDS: OXYCODONE HCL 5MG TABLET PO PRN ×2 (10:57→16:11)
[2020-12-02 14:27] VITALS: BP 120/82
[2020-12-02 16:11] VITALS: BP 158/59
== END 2020-12-02 17:40 | disposition home health service (06) | DRG 552 ==
LOC: UNDODISIN 11-24 16:13
PROVIDERS: ADMIT Physical Medicine & Rehabilitation Spinal Cord Injury Medicine; ATTEND Internal Medicine
DX: M48.061 Spinal stenosis, lumbar region without neurogenic claudication (principal); G82.20 Paraplegia, unspecified; M47.816 Spondylosis without myelopathy or radiculopathy, lumbar region; E66.9 Obesity, unspecified; G89.4 Chronic pain syndrome; I10 Essential (primary) hypertension; K76.0 Fatty (change of) liver, not elsewhere classified; M32.9 Systemic lupus erythematosus, unspecified; M48.02 Spinal stenosis, cervical region; M48.07 Spinal stenosis, lumbosacral region; E55.9 Vitamin D deficiency, unspecified; M51.24 Other intervertebral disc displacement, thoracic region; M51.36 Other intervertebral disc degeneration, lumbar region; R26.9 Unspecified abnormalities of gait and mobility; R53.81 Other malaise; Z82.49 Family history of ischemic heart disease and other diseases of the circulatory system; Z68.33 Body mass index [BMI] 33.0-33.9, adult
CPT/HCPCS: 36415; 76770; 80048; 80053; 81003; 82306; 82607; 82728; 82746; 83540; 83550; 84134; 84443; 85025; 93970; 97110; 97116; 97162; 97166; 97530; 97535; J1650

== ENCOUNTER 2022-10-07 16:39 | Emergency (ER) | payer MEDICARE, MEDICAID ==
[~2022-10-07] VITALS: Ht 170.2 cm; Wt 106.0 kg
[~2022-10-07 16:39] MED LIST changes: -ATEN-42 MT; +ATEN50TA PO; +CHOL-9 PO; +GABA-532 PO; -HYDR25TA MT; +LIDO700A30 TOP; +MSCON15 PO; +NALO4SPR BOTHNSTRLS; +POLY17PO3 PO
[2022-10-07 17:06] VITALS: BP 143/98; O2SAT 96
[2022-10-07 19:00] LABS: CLARITY URINE CLEAR (CLEAR); COLOR URINE YELLOW (YELLOW); KETONES URINE 1+ (NEGATIVE); LEUKOCYTE ESTERASE URINE NEGATIVE (NEGATIVE); NITRITE URINE NEGATIVE (NEGATIVE); OCCULT BLOOD URINE NEGATIVE (NEGATIVE); PH URINE 5.5 (4.5-8.0); PROTEIN URINE 1+ (NEGATIVE); SPECIFIC GRAVITY URINE 1.029 (1.005-1.030); UROBILINOGEN URINE 0.2 E.U./dL (0.2-1.0)
[2022-10-07] MEDS ORDERED: CIPR-263 MT (20:03)
[2022-10-07] MEDS ORDERED: FLUC150T46 MT (20:03)
[2022-10-07 20:14] VITALS: PULSE 61; RESP 20; TEMP 98
== END 2022-10-07 20:15 | disposition home or self-care (01) ==
LOC: ER 16:53
DX: B37.9 Candidiasis, unspecified (principal); N39.0 Urinary tract infection, site not specified; I10 Essential (primary) hypertension; Z79.899 Other long term (current) drug therapy
CPT/HCPCS: 81003; 99283

== ENCOUNTER 2023-06-23 07:23 | Emergency (ER) | payer BC, MEDICAID ==
[~2023-06-23] VITALS: Ht 172.7 cm; Wt 100.0 kg
[~2023-06-23 07:23] MED LIST changes: +CIPR-263 MT; +FLUC150T46 MT; +INSU100I13 SQ; +INSU100I28 SQ
[2023-06-23 07:52] VITALS: O2SAT 97
[2023-06-23] MEDS ORDERED: IPRATROPIUM/ALBUTEROL 0.5-3(2.5)MG/3ML NEB HHN ONE (09:30)
[2023-06-23] MEDS ORDERED: PREDNISONE 20MG TABLET PO ONE (09:30)
[2023-06-23 10:27] LABS: CLARITY URINE CLEAR (CLEAR); COLOR URINE YELLOW (YELLOW); GLUCOSE URINE NEGATIVE (NEGATIVE); KETONES URINE NEGATIVE (NEGATIVE); LEUKOCYTE ESTERASE URINE TRACE (NEGATIVE); NITRITE URINE NEGATIVE (NEGATIVE); OCCULT BLOOD URINE TRACE (NEGATIVE); PH URINE 5.5 (4.5-8.0); PROTEIN URINE 2+ (NEGATIVE); SPECIFIC GRAVITY URINE 1.011 (1.005-1.030); UROBILINOGEN URINE 0.2 E.U./dL (0.2-1.0)
[2023-06-23 10:33] LABS: BASOPHILS % 0.8 % (0.0-2.0); EOSINOPHILS % 1.1 % (0.0-5.0); HEMATOCRIT. 39.9 % (36.0-48.0); HEMOGLOBIN. 13.6 g/dL (12.0-16.0); MEAN CORPUSCULAR HEMOGLOBIN 30.4 pg (28.0-32.0); MEAN CORPUSCULAR HGB CONC 34.1 g/dL (31.0-37.0); MEAN CORPUSCULAR VOLUME 89.1 fL (81.0-99.0); NEUTROPHILS % 68.1 % (40.0-76.0); PLATELET 323 x1000/uL (130-400); RED BLOOD CELL COUNT 4.48 mill/uL (4.2-5.4); RED CELL DISTRIBUTION WIDTH 12.7 % (11.6-14.6); WHITE BLOOD COUNT 7.1 x1000/uL (4.5-11.0)
[2023-06-23 10:42] LABS: SQUAMOUS EPITHELIAL CELL URINE 2+ /lpf (RARE/1+)
[2023-06-23 10:43] LABS: CALCIUM OXALATE CRYSTALS URINE 1+ /lpf; RBC URINE 0-2 /hpf (0-2)
[2023-06-23 10:44] LABS: INR 0.9; PROTHROMBIN TIME 10.6 sec (9.6-11.0)
[2023-06-23 10:45] LABS: BACTERIA URINE 2+
[2023-06-23 10:58] LABS: ALANINE AMINOTRANSFERASE 14 IU/L (10-49); ALBUMIN 3.6 g/dL (3.2-4.8); ASPARTATE AMINOTRANSFERASE 14 IU/L (<34); BILIRUBIN TOTAL 0.4 mg/dL (0.1-1.0); CALCIUM 9.1 mg/dL (8.7-10.4); CARBON DIOXIDE 31 mEq/L (21-32); CHLORIDE 95 mEq/L (98-107); CREATININE 0.6 mg/dL (0.6-1.0); GLUCOSE 341 mg/dL (70-105); POTASSIUM 3.5 mEq/L (3.5-5.1); PROTEIN TOTAL 7.1 g/dL (6.0-8.3); SODIUM 131 mEq/L (136-145); UREA NITROGEN BLOOD 10 mg/dL (9-23)
[2023-06-23] MEDS ORDERED: PREDNISONE 20MG TABLET PO NR (11:00)
[2023-06-23 11:11] LABS: TROPONIN I HIGH SENSITIVITY < 4 ng/L (3.0-34)
[2023-06-23] MEDS ORDERED: P50 MT (11:24)
[2023-06-23] MEDS ORDERED: ALBU6.7H15 INH (11:25)
[2023-06-23] MEDS ORDERED: SODIUM CHLORIDE 0.9% 1,000 ML IV ONE (11:30)
[2023-06-23 11:43] VITALS: BP 153/74; PULSE 89; RESP 19; TEMP 98.3
== END 2023-06-23 11:45 | disposition home or self-care (01) ==
LOC: ER 07:34
DX: E87.1 Hypo-osmolality and hyponatremia (principal); J44.9 Chronic obstructive pulmonary disease, unspecified; R53.1 Weakness; E11.9 Type 2 diabetes mellitus without complications; I10 Essential (primary) hypertension; Z20.822 Contact with and (suspected) exposure to COVID-19
CPT/HCPCS: 99285; 71045; 87426; 80053; 81003; 82962; 83880; 85025; 85610; 84484; 36415; 93005; J7512; J7030

== ENCOUNTER 2024-03-10 21:50 | Emergency (ER) | payer MEDICAID, MEDICARE ==
[~2024-03-10] VITALS: Ht 162.6 cm; Wt 120.0 kg
[~2024-03-10 21:50] MED LIST changes: +ALBU6.7H15 INH; -CIPR-263 MT; -FLUC150T46 MT; +GABA-1180 PO; -GABA-532 PO; +OXYB5TAB21 MT; +P50 MT
[2024-03-10 22:13] VITALS: O2SAT 97
[2024-03-10] MEDS: LEVETIRACETAM 500MG PREMIX 100 ML IV ONE (23:09)
[2024-03-10 23:10] VITALS: BP 124/82; PULSE 113; RESP 26; TEMP 37.00296; O2SAT 94
[2024-03-10 23:30] LABS: BASOPHILS % 0.4 % (0.0-2.0); EOSINOPHILS % 0.6 % (0.0-5.0); HEMATOCRIT. 37.3 % (36.0-48.0); HEMOGLOBIN. 12.4 g/dL (12.0-16.0); LYMPHOCYTES % 8.8 % (20.0-50.0); MEAN CORPUSCULAR HGB CONC 33.3 g/dL (31.0-37.0); MEAN CORPUSCULAR VOLUME 90.2 fL (81.0-99.0); MEAN PLATELET VOLUME 6.8 fl (7.4-10.4); MONOCYTES % 6.3 % (2.0-8.0); NEUTROPHILS % 83.9 % (40.0-76.0); PLATELET 342 x1000/uL (130-400); RED BLOOD CELL COUNT 4.14 mill/uL (4.2-5.4); RED CELL DISTRIBUTION WIDTH 13.4 % (11.6-14.6); WHITE BLOOD COUNT 10.7 x1000/uL (4.5-11.0)
[2024-03-10 23:33] LABS: CHLORIDE 94 mEq/L (98-107); POTASSIUM 4.1 mEq/L (3.5-5.1); SODIUM 132 mEq/L (136-145)
[2024-03-10 23:34] LABS: CALCIUM 9.5 mg/dL (8.7-10.4); CARBON DIOXIDE 31 mEq/L (21-32)
[2024-03-10 23:39] LABS: CREATININE 0.6 mg/dL (0.6-1.0); GLUCOSE 270 mg/dL (70-105); TROPONIN I HIGH SENSITIVITY 18 ng/L (3.0-34); UREA NITROGEN BLOOD 8 mg/dL (9-23)
[2024-03-10 23:41] LABS: ETHANOL BLOOD < 10 mg/dL (<10)
== END 2024-03-11 01:30 | disposition home or self-care (01) ==
LOC: ER 21:50
DX: G40.909 Epilepsy, unspecified, not intractable, without status epilepticus (principal); I10 Essential (primary) hypertension; Z00.00 Encounter for general adult medical examination without abnormal findings; I11.9 Hypertensive heart disease without heart failure; F03.90 Unspecified dementia, unspecified severity, without behavioral disturbance, psychotic disturbance, mood disturbance, and anxiety; E11.9 Type 2 diabetes mellitus without complications; M19.90 Unspecified osteoarthritis, unspecified site; Z79.899 Other long term (current) drug therapy; Z87.440 Personal history of urinary (tract) infections; Z79.4 Long term (current) use of insulin
CPT/HCPCS: 80048; 80320; 83880; 85025; 84484; 36415; 71045; 70450; 96365; 99285; J1953; G0480

== ENCOUNTER 2024-06-20 07:37 | Emergency (ER) | payer MEDICARE, MEDICAID ==
[~2024-06-20] VITALS: Ht 170.2 cm; Wt 114.0 kg
[2024-06-20 07:39] VITALS: TEMP 37.1; O2SAT 100
[2024-06-20 08:32] LABS: CARBON DIOXIDE 27 mEq/L (21-32); CHLORIDE 94 mEq/L (98-107); POTASSIUM 6.1 mEq/L (3.5-5.1); SODIUM 132 mEq/L (136-145)
[2024-06-20 08:33] LABS: CALCIUM 10.3 mg/dL (8.7-10.4)
[2024-06-20 08:37] LABS: CREATININE 0.8 mg/dL (0.6-1.0)
[2024-06-20 08:38] LABS: TROPONIN I HIGH SENSITIVITY 27 ng/L (3.0-34); UREA NITROGEN BLOOD 8 mg/dL (9-23)
[2024-06-20 08:40] LABS: BETA HYDROXYBUTYRATE 0.3 mMol/L (0.0-0.3)
[2024-06-20 08:48] LABS: GLUCOSE 402 mg/dL (70-105)
[2024-06-20 09:25] LABS: BASOPHILS % 0.6 % (0.0-2.0); EOSINOPHILS % 0.3 % (0.0-5.0); HEMATOCRIT. 41.2 % (36.0-48.0); HEMOGLOBIN. 13.4 g/dL (12.0-16.0); MEAN CORPUSCULAR HEMOGLOBIN 29.3 pg (28.0-32.0); MEAN CORPUSCULAR HGB CONC 32.4 g/dL (31.0-37.0); MEAN CORPUSCULAR VOLUME 90.4 fL (81.0-99.0); MEAN PLATELET VOLUME 6.9 fl (7.4-10.4); MONOCYTES % 2.6 % (2.0-8.0); NEUTROPHILS % 82.5 % (40.0-76.0); PLATELET 307 x1000/uL (130-400); RED BLOOD CELL COUNT 4.56 mill/uL (4.2-5.4); RED CELL DISTRIBUTION WIDTH 13.2 % (11.6-14.6); WHITE BLOOD COUNT 7.4 x1000/uL (4.5-11.0)
[2024-06-20 09:34] LABS: POTASSIUM 3.7 mEq/L (3.5-5.1)
[2024-06-20] MEDS: INSULIN LISPRO 100 UNITS/ML SUBCUT ONE (09:38)
[2024-06-20] MEDS: SODIUM CHLORIDE 0.9% 1,000 ML IV ONE (09:38)
[2024-06-20 10:50] VITALS: BP 141/66; PULSE 78; RESP 12; O2SAT 98
== END 2024-06-20 08:40 | disposition home or self-care (01) ==
LOC: ER 07:37 → CANBEDREQ 11:49
DX: E11.65 Type 2 diabetes mellitus with hyperglycemia (principal); R07.9 Chest pain, unspecified; M19.90 Unspecified osteoarthritis, unspecified site; I10 Essential (primary) hypertension; Z79.4 Long term (current) use of insulin; F03.90 Unspecified dementia, unspecified severity, without behavioral disturbance, psychotic disturbance, mood disturbance, and anxiety; Z79.899 Other long term (current) drug therapy; Z87.440 Personal history of urinary (tract) infections
CPT/HCPCS: 99285; 96360; 71045; 80048; 82010; 82962; 83880; 84132; 85025; 85379; 84484; 36415; 93005; J1815; J7030

== ENCOUNTER 2025-01-13 21:43 | Inpatient (IN) | payer MEDICARE, MEDICAID ==
[~2025-01-13] VITALS: Ht 170.2 cm; Wt 114.8 kg
[2025-01-13 21:51] VITALS: O2SAT 98
[2025-01-13] MEDS: ONDANSETRON HCL 4MG/2ML INJ IV NR (22:49)
[2025-01-13] MEDS: LEVETIRACETAM 1000MG PREMIX 100 ML IV ONE (22:50)
[2025-01-13 23:20] LABS: BASOPHILS % 1.2 % (0.0-2.0); EOSINOPHILS % 0.0 % (0.0-5.0); HEMATOCRIT. 41.8 % (36.0-48.0); HEMOGLOBIN. 13.7 g/dL (12.0-16.0); LYMPHOCYTES % 17.3 % (20.0-50.0); MEAN PLATELET VOLUME 8.0 fl (7.4-10.4); MONOCYTES % 3.2 % (2.0-8.0); NEUTROPHILS % 78.3 % (40.0-76.0); PLATELET 352 x1000/uL (130-400); RED BLOOD CELL COUNT 4.76 mill/uL (4.2-5.4); RED CELL DISTRIBUTION WIDTH 12.8 % (11.6-14.6)
[2025-01-13 23:31] LABS: CREATININE 0.7 mg/dL (0.6-1.0)
[2025-01-13 23:32] LABS: UREA NITROGEN BLOOD 7 mg/dL (9-23)
[2025-01-13 23:33] LABS: ASPARTATE AMINOTRANSFERASE 31 IU/L (<34); BILIRUBIN DIRECT 0.1 mg/dL (<=3.0); PHOSPHORUS 3.6 mg/dL (2.5-4.9); TROPONIN I HIGH SENSITIVITY 21 ng/L (3.0-34)
[2025-01-13 23:34] LABS: BILIRUBIN TOTAL 0.5 mg/dL (0.1-1.0); PROTEIN TOTAL 7.7 g/dL (6.0-8.3)
[2025-01-13 23:38] LABS: INR 1.0
[2025-01-14] MEDS: PANTOPRAZOLE SODIUM 40 MG/VIAL IV ONE (00:01)
[2025-01-14] MEDS: MAGNESIUM/ALUMINUM HYDROXIDE/SIMETHICONE 30ML UDC PO ONE (00:01)
[2025-01-14] MEDS: MORPHINE SULFATE 4 MG/ML INJ (FOR IV/IM USE) IV ONE (00:02)
[2025-01-14] MEDS ORDERED: ALPRAZOLAM 0.5 MG TABLET PO ONE (00:45)
[2025-01-14] MEDS: ALPRAZOLAM 0.25 MG TABLET PO NR (00:49)
[2025-01-14] MEDS: MAGNESIUM 2 G PREMIX 50 ML IV NR (02:25)
[2025-01-14] MEDS: SODIUM CHLORIDE 0.9% 500 ML IV ONE (02:30)
[2025-01-14 05:30] LABS: CLARITY URINE CLEAR (CLEAR); COLOR URINE YELLOW (YELLOW); GLUCOSE URINE 3+ (NEGATIVE); KETONES URINE 3+ (NEGATIVE); LEUKOCYTE ESTERASE URINE NEGATIVE (NEGATIVE); NITRITE URINE NEGATIVE (NEGATIVE); OCCULT BLOOD URINE 1+ (NEGATIVE); PH URINE 6.5 (4.5-8.0); PROTEIN URINE 3+ (NEGATIVE); SPECIFIC GRAVITY URINE 1.036 (1.005-1.030); UROBILINOGEN URINE 0.2 E.U./dL (0.2-1.0)
[2025-01-14 05:48] LABS: *AMPHETAMINES SCREEN URINE NEGATIVE (NEGATIVE); *BARBITURATES SCREEN URINE NEGATIVE (NEGATIVE); *BENZODIAZEPINES SCREEN URINE NEGATIVE (NEGATIVE); *COCAINE SCREEN URINE NEGATIVE (NEGATIVE); CANNABINOID URINE SCREEN PRESUMPTIVE POSITIVE (NEGATIVE); ECSTASY MDMA SCREEN URINE NEGATIVE (NEGATIVE); METHADONE URINE SCREEN NEGATIVE (NEGATIVE); OPIATES URINE SCREEN PRESUMPTIVE POSITIVE (NEGATIVE); PHENCYCLIDINE URINE SCREEN NEGATIVE (NEGATIVE)
[2025-01-14 07:17] LABS: BACTERIA URINE TRACE; RBC URINE 0-2 /hpf (0-2); SQUAMOUS EPITHELIAL CELL URINE 1+ /lpf (RARE/1+); WBC URINE 0-2 /hpf (0-2)
[2025-01-14 07:18] LABS: YEAST URINE 1+
[2025-01-14 08:00] VITALS: BP 126/78; PULSE 83; RESP 18; TEMP 36.7; O2SAT 98
[2025-01-14 09:00] VITALS: BP 126/78; PULSE 83; RESP 18; TEMP 36.696
[2025-01-14] MEDS ORDERED: DOCUSATE SODIUM 100MG CAPSULE PO PRN (10:00)
[2025-01-14] MEDS ORDERED: ACETAMINOPHEN 325MG TABLET PO PRN (10:00)
[2025-01-14] MEDS ORDERED: IPRATROPIUM/ALBUTEROL 0.5-3(2.5)MG/3ML NEB HHN PRN (10:00)
[2025-01-14] MEDS ORDERED: LORAZEPAM 2MG/ML UD SYRINGE IV PRN (10:00)
[2025-01-14] MEDS ORDERED: ONDANSETRON HCL 4MG/2ML INJ IV PRN (10:00)
[2025-01-14] MEDS ORDERED: DEXTROSE 50% WATER 50ML SYRINGE IV PRN (10:00)
[2025-01-14] MEDS: BLOOD SUGAR DIAGNOSTIC STRIP TEST SCH (11:58)
[2025-01-14 12:00] VITALS: BP 150/86; PULSE 89; RESP 18; TEMP 36.3; O2SAT 95
[2025-01-14] MEDS ORDERED: PNEUMOCOCCAL 20-VAL CONJ-DIP CRM 0.5ML IM ONE (12:30)
[2025-01-14] MEDS ORDERED: INFLUENZA VACCINE 05/PF 0.5 ML SYRINGE IM ONE (12:30)
[2025-01-14] MEDS: INSULIN LISPRO 100 UNITS/ML SUBCUT SCH ×3 (12:47→14:24)
[2025-01-14] MEDS: PANTOPRAZOLE SODIUM 40 MG/VIAL IV SCH (12:52)
[2025-01-14] MEDS: SODIUM CHLORIDE 0.9% 1,000 ML IV SCH (12:53)
[2025-01-14] MEDS ORDERED: LEVE750T4 MT (13:47)
[2025-01-14] MEDS: INSULIN GLARGINE 100 UNITS/ML SUBCUT SCH (14:24)
[2025-01-14 16:00] VITALS: BP 136/85; PULSE 85; RESP 18; TEMP 36.8; O2SAT 96
[2025-01-14 20:00] VITALS: BP 106/70; PULSE 89; RESP 20; TEMP 36.2; O2SAT 98
[2025-01-14] MEDS: LEVETIRACETAM 500MG PREMIX 100 ML IV SCH (20:50)
[2025-01-15] VITALS: BP 166/92; PULSE 93; RESP 20; TEMP 35.8; O2SAT 98
[2025-01-15] MEDS: CLONIDINE 0.1MG TABLET PO PRN (00:34)
[2025-01-15 04:00] VITALS: BP 141/70; PULSE 83; RESP 20; TEMP 36.4; O2SAT 97
[2025-01-15 08:00] VITALS: BP 157/91; PULSE 84; RESP 18; TEMP 36.4; O2SAT 96
[2025-01-15] MEDS: ENOXAPARIN 30MG/0.3ML SYR SUBCUT SCH (10:21)
[2025-01-15 11:03] LABS: BASOPHILS % 1.1 % (0.0-2.0); EOSINOPHILS % 0.5 % (0.0-5.0); HEMATOCRIT. 39.9 % (36.0-48.0); HEMOGLOBIN. 13.1 g/dL (12.0-16.0); LYMPHOCYTES % 25.9 % (20.0-50.0); MEAN PLATELET VOLUME 7.7 fl (7.4-10.4); MONOCYTES % 7.2 % (2.0-8.0); NEUTROPHILS % 65.3 % (40.0-76.0); PLATELET 351 x1000/uL (130-400); RED BLOOD CELL COUNT 4.57 mill/uL (4.2-5.4); RED CELL DISTRIBUTION WIDTH 12.9 % (11.6-14.6)
[2025-01-15 11:13] LABS: INR 1.0
[2025-01-15 11:20] LABS: CREATININE 0.6 mg/dL (0.6-1.0)
[2025-01-15 11:21] LABS: UREA NITROGEN BLOOD 7 mg/dL (9-23)
[2025-01-15 11:22] LABS: ASPARTATE AMINOTRANSFERASE 10 IU/L (<34)
[2025-01-15 11:23] LABS: BILIRUBIN DIRECT 0.1 mg/dL (<=3.0); BILIRUBIN TOTAL 0.5 mg/dL (0.1-1.0); PHOSPHORUS 1.7 mg/dL (2.5-4.9); PROTEIN TOTAL 7.1 g/dL (6.0-8.3)
[2025-01-15 12:00] VITALS: BP 132/90; PULSE 89; RESP 19; TEMP 36.5; O2SAT 97
[2025-01-15] MEDS: INSULIN GLARGINE 100 UNITS/ML SUBCUT SCH ×2 (12:20→22:40)
[2025-01-15] MEDS ORDERED: INSULIN REGULAR (HUMULIN R) 1000UNITS/10ML VIAL SUBCUT ONE (14:45)
[2025-01-15 16:00] VITALS: BP 154/93; PULSE 93; PULSE 95; RESP 19; TEMP 36.7; O2SAT 96
[2025-01-15] MEDS: INSULIN LISPRO 100 UNITS/ML SUBCUT SCH (17:15)
[2025-01-15 20:00] VITALS: BP 160/100; PULSE 99; RESP 20; TEMP 35.9; O2SAT 98
[2025-01-16] VITALS: BP 105/85; PULSE 73; RESP 22; TEMP 36.1; O2SAT 97
[2025-01-16 04:00] VITALS: BP 126/81; PULSE 86; RESP 20; TEMP 36.4; O2SAT 99
[2025-01-16] MEDS: INSULIN GLARGINE 100 UNITS/ML SUBCUT SCH (09:27)
[2025-01-16 12:18] VITALS: BP 117/68; PULSE 87; RESP 18; TEMP 36.3; O2SAT 98
[2025-01-16 16:00] VITALS: BP 120/73; PULSE 80; RESP 18; TEMP 36.3; O2SAT 98
[2025-01-16 20:00] VITALS: BP 151/80; PULSE 89; RESP 18; TEMP 36.2; O2SAT 95
[2025-01-16] MEDS: ACETAMINOPHEN 325MG TABLET PO PRN (21:12)
[2025-01-17] VITALS: BP 137/80; PULSE 85; RESP 19; TEMP 36.2; O2SAT 98
[2025-01-17 04:00] VITALS: BP 156/78; PULSE 76; RESP 21; TEMP 24.4; O2SAT 99
[2025-01-17 08:00] VITALS: BP 159/86; PULSE 73; RESP 19; TEMP 36.3; O2SAT 98
[2025-01-17 12:00] VITALS: BP 165/80; PULSE 68; RESP 17; TEMP 36.7; O2SAT 96
[2025-01-17] MEDS ORDERED: LEVE-20 MT (15:24)
[2025-01-17] MEDS ORDERED: HYDR25TA MT (15:29)
[2025-01-17] MEDS ORDERED: INSU100I28 SQ (15:30)
[2025-01-17 16:00] VITALS: BP 155/82; PULSE 95; RESP 18; TEMP 37.1; O2SAT 96
[2025-01-17 20:00] VITALS: BP 145/92; PULSE 93; RESP 18; TEMP 37.1; O2SAT 98
[2025-01-17 20:36] LABS: BASOPHILS % 0.9 % (0.0-2.0); EOSINOPHILS % 0.9 % (0.0-5.0); HEMATOCRIT. 37.6 % (36.0-48.0); HEMOGLOBIN. 12.5 g/dL (12.0-16.0); LYMPHOCYTES % 37.4 % (20.0-50.0); MEAN PLATELET VOLUME 7.5 fl (7.4-10.4); MONOCYTES % 6.3 % (2.0-8.0); NEUTROPHILS % 54.5 % (40.0-76.0); PLATELET 356 x1000/uL (130-400); RED BLOOD CELL COUNT 4.28 mill/uL (4.2-5.4); RED CELL DISTRIBUTION WIDTH 12.8 % (11.6-14.6)
[2025-01-17 20:54] LABS: CREATININE 0.6 mg/dL (0.6-1.0); UREA NITROGEN BLOOD 6 mg/dL (9-23)
[2025-01-17 20:56] LABS: PHOSPHORUS 3.3 mg/dL (2.5-4.9)
[2025-01-18] VITALS: BP 171/87; PULSE 80; RESP 19; TEMP 36.7; O2SAT 98
[2025-01-18 04:00] VITALS: BP 141/93; PULSE 78; RESP 19; TEMP 36.7; O2SAT 98
[2025-01-18 08:00] VITALS: BP 159/91; PULSE 70; RESP 17; TEMP 36; O2SAT 97
[2025-01-18 09:32] LABS: BASOPHILS % 0.6 % (0.0-2.0); EOSINOPHILS % 1.4 % (0.0-5.0); HEMATOCRIT. 39.8 % (36.0-48.0); HEMOGLOBIN. 13.0 g/dL (12.0-16.0); LYMPHOCYTES % 36.3 % (20.0-50.0); MEAN PLATELET VOLUME 7.7 fl (7.4-10.4); MONOCYTES % 7.1 % (2.0-8.0); NEUTROPHILS % 54.6 % (40.0-76.0); PLATELET 352 x1000/uL (130-400); RED BLOOD CELL COUNT 4.48 mill/uL (4.2-5.4); RED CELL DISTRIBUTION WIDTH 13.3 % (11.6-14.6)
[2025-01-18 09:39] LABS: CREATININE 0.5 mg/dL (0.6-1.0)
[2025-01-18 09:40] LABS: UREA NITROGEN BLOOD 6 mg/dL (9-23)
[2025-01-18 12:00] VITALS: BP 148/78; PULSE 76; RESP 15; TEMP 36.7; O2SAT 98
[2025-01-18] MEDS ORDERED: LANTUSUD SUBCUT (14:13)
[2025-01-18] MEDS: POTASSIUM CHLORIDE 20MEQ TABLET SR PO SCH (14:15)
[2025-01-18 16:00] VITALS: BP 127/52; PULSE 71; RESP 15; TEMP 36.7; O2SAT 97
[2025-01-18 20:00] VITALS: BP 136/71; PULSE 76; RESP 17; TEMP 36.6; O2SAT 97
[2025-01-19] VITALS: BP 152/74; PULSE 74; RESP 17; TEMP 36.4; O2SAT 99
[2025-01-19 04:00] VITALS: BP 145/70; PULSE 76; RESP 17; TEMP 36.6; O2SAT 99
[2025-01-19 08:00] VITALS: BP 148/68; PULSE 78; RESP 16; TEMP 36.1; O2SAT 99
[2025-01-19 12:00] VITALS: BP 144/71; PULSE 76; RESP 17; TEMP 36.7; O2SAT 99
[2025-01-19 16:00] VITALS: BP 147/74; PULSE 73; RESP 17; TEMP 37.1; O2SAT 99
[2025-01-19] MEDS ORDERED: HYDRALAZINE 20MG/ML VIAL IV SCH (17:30)
[2025-01-19 18:10] VITALS: BP 145/77; PULSE 88; RESP 16; TEMP 97.8
== END 2025-01-19 18:25 | disposition home or self-care (01) | DRG 637 ==
LOC: ER 21:43 → 6WST 01-14 00:52 → EDBEDREQDT 01-14 00:59 → EDBEDREQ 01-14 00:59 → EDBEDREQTM 01-14 00:59 → ENRESERV 01-14 05:23
PROVIDERS: ADMIT Internal Medicine; ATTEND Internal Medicine
DX: E11.65 Type 2 diabetes mellitus with hyperglycemia (principal); G93.41 Metabolic encephalopathy; F03.90 Unspecified dementia, unspecified severity, without behavioral disturbance, psychotic disturbance, mood disturbance, and anxiety; I10 Essential (primary) hypertension; E87.1 Hypo-osmolality and hyponatremia; R16.0 Hepatomegaly, not elsewhere classified; E87.5 Hyperkalemia; Z79.899 Other long term (current) drug therapy
CPT/HCPCS: 36415; 70551; 71045; 74176; 80048; 80076; 80305; 80320; 81003; 82140; 82962; 83036; 83605; 83735; 83880; 84100; 84145; 84484; 85025; 93005; 93970; 97116; 97162; 99285; J0360; J1650; J1815; J1953; J2060; J2270; J2405; J2470; J3475; J7030; G0480